=== PATIENT | female | born 2005 | race Caucasian/White ===

== ENCOUNTER 2024-09-20 10:14 | Emergency (ER) | payer OTHER ==
[~2024-09-20] VITALS: Ht 162.6 cm; Wt 90.7 kg
[2024-09-20] MEDS ORDERED: HYDROcodone 5-APAP 325 TAB PO ONE (10:25)
[2024-09-20] MEDS ORDERED: Ketorolac Tromethamine 15mg Vial IM ONE (10:25)
[2024-09-20] MEDS ORDERED: Silver Sulfadiazine 1% Cream 25 APPLIC/25 GM Tube TOP ONE (10:25)
[2024-09-20] MEDS ORDERED: IBUP800 PO (11:27)
[2024-09-20] MEDS ORDERED: HYDROCODONE-AC1 EA11 PO (11:27)
== END 2024-09-20 11:35 | disposition home or self-care (01) ==
LOC: ER 10:14
DX: T23.151A Burn of first degree of right palm, initial encounter (principal); Z23 Encounter for immunization; Z59.89 Other problems related to housing and economic circumstances; X15.0XXA Contact with hot stove (kitchen), initial encounter
CPT/HCPCS: 90715; A9270; J1885